=== PATIENT | male | born 1985 | race Caucasian/White ===

== ENCOUNTER 2018-08-27 15:03 | Emergency (ER) | payer OTHER ==
--- NOTE | 2018-08-27 15:11 | EDPHY ---
HPI/HX/ROS/PE/MDM Narrative: CHIEF COMPLAINT: Fall while skiing; right shoulder/back pain HPI: This patient is a healthy 33-year-old male. 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 He caught the edge of his right ski and fell hard, knocking the wind out of himself. He was helmeted and did strike his head, but did not lose consciousness. He denies any headache, nausea, vomiting, and he remembers the entire event. He complains of right shoulder pain and thoracic back pain. His pain is increased with deep inspiration, laughing, or coughing. EMS crews administered Fentanyl in transport which has considerably relieved his pain at this time. He denies any other recent illness or injuries. REVIEW OF SYSTEMS: A comprehensive 10 system review of systems is otherwise negative aside from elements mentioned in the history of present illness and medical decision making. PMH: Denies SOCIAL HISTORY: Employed at [employer]. 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 Single. Does not abuse tobacco, drugs, or alcohol PHYSICAL EXAM: General:Patient is alert, in no acute distress. ENT:Eyes are normal to inspection. ENT inspection normal. Neck: Normal inspection. Full range of motion. Respiratory:No respiratory distress. Breath sounds normal bilaterally. Cardiovascular: Regular rate and rhythm. Strong peripheral pulses. Normal cap refill. Abdomen:The abdomen is nontender to palpation. There are no peritoneal signs. There are normal bowel sounds. Back: Right scapular tenderness. Normal to inspection. Skin: Normal color. No rash. Warm and dry. Extremities: Right midshaft clavicular tenderness. Normal appearance. Full range of motion. Neuro: Oriented x3. Normal motor function. Normal sensory function. ED Course: 33 year old male presents with right shoulder and back pain following a skiing accident today. On exam, he has midshaft clavicular and scapular tenderness on the right. He does not meet criteria for CT head: no headache, no neurologic deficits, no vomiting, no amnesia, no physical signs of injury. Plan for x-ray of right ribs and right shoulder for further evaluation. Will perform pain management as needed. 16:01 Reviewed x-rays. Patient has a right midshaft clavicular fracture. No evidence of acute right rib fracture or other osseous abnormalities. Reassessed patient. Discussed imaging results. I offered CT for further evaluation of the patient's thorax and abdomen, but he declines. He understands he should return for imaging should his symptoms persist or worsen. Plan to provide patient with sling and prescription for Percocet for pain relief. Plan to discharge home in good condition with referral to advertising specialist. Follow up and return precautions discussed. He is comfortable with this plan. - Data Points Imaging Results: Imaging Impressions Ribs w/Chest X-Ray 08/27/18 15:22 Impression: 1. No evidence for acute cardiopulmonary abnormality. 2. No evidence for a right rib fracture. Shoulder X-Ray 08/27/18 15:22 Impression: Mid right clavicular fracture with minimal superior apex angulation. Imaging: I viewed and interpreted images myself General Time Seen by Provider: 08/27/18 15:09 Initial Vital Signs: Initial Vital Signs Temperature (C) 37.1 C 08/27/18 15:03 Heart Rate 72 08/27/18 15:03 Respiratory Rate 18 08/27/18 15:03 Blood Pressure 158/86 H 08/27/18 15:03 O2 Sat (%) 98 08/27/18 15:03 O2 Delivery Mode Room Air Allergies/Adverse Reactions: No Known Allergies Allergy (Verified 08/27/18 15:10) Home Medications: Medication Instructions Recorded oxyCODONE/APAP 5/325 [Percocet 1 - 2 tab PO Q4H PRN #20 tab 08/27/18 5/325 (*)] Departure - Departure Disposition: Home, Routine, Self-Care Clinical Impression: Closed right clavicular fracture, Chest wall contusion Condition: Good Instructions: Clavicle Fracture (ED) Additional Instructions: Rest, ice. Take Tylenol or ibuprofen as directed below as needed for pain. You may take Percocet as prescribed as needed for severe pain. Please note the warnings below regarding acetaminophen (Tylenol) use with Percocet - do not take acetaminophen with Percocet. Please return for CT imaging as we discussed if you have increased or continuing scapular or rib pain, difficulty breathing, or other worsening of condition or further concerns. Follow up with an orthopedic surgeon within one week. Wear sling at all times until reevaluation - you may however take it off to shower. Return to the emergency department for worsening pain, swelling, numbness, weakness or other concerns. Adult Pain & Fever Control: We recommend Acetaminophen (Tylenol) and Ibuprofen (Motrin,Advil) for pain and fever control. When fever is high or pain severe, both drugs can be used at the same time, but at different intervals. Please note the time differences. Your dose is: Acetaminophen 650mg every 4 to 6 hours Ibuprofen 600mg every 6-8 hours with food Note: do not take Acetaminophen with Hydrocodone (Vicodin, Lortab) or Oxycodone (Percocet). These medications also contain Acetaminophen. No more than 3000mg of Acetaminophen should be taken in 24 hours (for an adult). Referrals: Sonny Ro MD [Medical Doctor] - As per Instructions Prescriptions: oxyCODONE/APAP 5/325 [Percocet 5/325 (*)] 1 - 2 tab PO Q4H PRN #20 tab PRN Reason: Pain, Severe Report Scribed for: Tacho Pascal Report Scribed by: Kerri Oneill Date of Report: 08/27/18 Time of Report: 15:29 Physician Review and Approval Statement: Portions of this note were transcribed by an ED scribe. I personally performed the history, physical exam, and medical decision making; and confirm the accuracy of the information in the transcribed note.
[2018-08-27 16:57] VITALS: BP 125/81
== END 2018-08-27 16:57 | disposition home or self-care (01) ==
LOC: EDUNIT#
DX: S42.021A Displaced fracture of shaft of right clavicle, initial encounter for closed fracture (principal); S20.219A Contusion of unspecified front wall of thorax, initial encounter; V00.321A Fall from snow-skis, initial encounter; Y93.23 Activity, snow (alpine) (downhill) skiing, snowboarding, sledding, tobogganing and snow tubing; Y92.838 Other recreation area as the place of occurrence of the external cause; Y99.0 Civilian activity done for income or pay
CPT/HCPCS: A4565